=== PATIENT | male | born 1995 | race Caucasian/White ===

== ENCOUNTER 2021-09-16 16:21 | Emergency (ER) | payer SELFPAY ==
[2021-09-16 16:34] VITALS: BP 136/66; PULSE 72; RESP 16; TEMP 37.2; O2SAT 100
--- NOTE | 2021-09-16 17:08 | ED.FEMALEGU ---
HPI - Female Genitourinary General Chief complaint: Urogenital-Male Stated complaint: STD Exposure Time Seen by Provider: 09/16/21 17:00 Source: patient, RN notes reviewed and old records reviewed Mode of arrival: ambulatory Limitations: no limitations History of Present Illness HPI Narrative: 25-year-old male who presents to [facility] with complaints of lower perineal pain no acute abdominal pain for the past 2 week. He has had itching and burning to penis, intermittent pain with symptoms of burning and pain with urination for the past week. Patient reports that his significant other test positive for trichomonas at her routine doctors visit and he wants to be tested for STD's. patient reports that he want only treated for trichomonas today and will return if GC an chlamydia are positive MD elicited complaint: possible STD Onset (ago): week(s) (1) Related Data Allergies Allergy/AdvReac Type Severity Reaction Status Date / Time No Known Allergies Allergy Verified 09/16/21 16:45 Review of Systems Review of Systems: CONSTITUTIONAL: Denies fever, chills, or sweats. EYES: Denies visual changes, redness, or discharge. ENT: Denies rhinorrhea, congestion, sore throat, or otalgia. CARDIOVASCULAR: Denies chest pain, palpitations, or edema. RESPIRATORY: Denies cough or dyspnea. GASTROINTESTINAL: lower perineal pain, no acute abdominal pain, nausea, vomiting, or diarrhea. GENITOURINARY: Positive for dysuria no hematuria some itching and pain with urination, burning to penis SKIN: Denies rash or itching. MUSCULOSKELETAL: Denies back pain, joint pain, or myalgia. NEUROLOGIC: Denies headache, numbness, or weakness. PSYCHIATRIC: Denies anxiety or depression. PMFSH Comments At time of signature, agree with nursing past medical, surgical, social and family history. There is no relevant family history pertinent to the presenting complaint Exam Narrative: GENERAL: Well-appearing, well-nourished, and in no acute distress. HEAD: Normocephalic, atraumatic. EYES: PERRLA and EOMI. ENT: Nares clear, no rhinorrhea or epistaxis. Mucous membranes moist. NECK: Supple.no lymphadenopathy CHEST: Clear to auscultation. No respiratory distress. HEART: Regular rate and rhythm. No murmur heard. Normal peripheral pulses. ABDOMEN: Soft, nontender, nondistended, normal active bowel sounds. perineal discomfort denies any testicle pain, no penile discharge EXTREMITIES: Normal range of motion. No edema. SKIN: Warm, dry, no rash. NEURO: No focal deficits. Alert and oriented x3. Course Course Level of Care: Express Care Visit Vital Signs Vital signs: Vital Signs Temperature 37.2 C 09/16/21 16:34 Pulse Rate 72 09/16/21 16:34 Respiratory Rate 16 09/16/21 16:34 Blood Pressure 136/66 09/16/21 16:34 Pulse Oximetry 100 09/16/21 16:34 Oxygen Delivery Room Air 09/16/21 16:34 Temperature 37.2 C 09/16/21 16:34 Pulse Rate 72 09/16/21 16:34 Respiratory Rate 16 09/16/21 16:34 Blood Pressure 136/66 09/16/21 16:34 Pulse Oximetry 100 09/16/21 16:34 Oxygen Delivery Room Air 09/16/21 16:34 MDM - Female Genitourinary Differential Diagnosis Differential diagnosis: Likely urinary tract infection, trichomoniasis, cystitis and other (GC and Chlamydia, possible exposure to STD's) Medical Records Attestation: I reviewed the patient's medical records. Lab Data Attestation: I reviewed the patient's lab results. Lab results narrative: see urine test:Glucose negative, bilirubin neg, Specific gravity !.020, blood negative,PH 6.0 Urobilinogen 0.2,Nitrate negative, Leukocyte negative. Chlamydia, Gonorrhea, Trichomonas results pending Labs: Lab Results 09/16/21 09/16/21 Range/Units 16:46 16:46 C.trachomatis RNA (TMA) Pending N.gonorrhoeae RNA (TMA) Pending T. vaginalis Amp RNA Pending Urine Glucose Negative Reference Range: Negative Urine Bilir
== END 2021-09-16 17:30 | disposition home or self-care (01) ==
PROVIDERS: Emergency Provider Registered Nurse
DX: R10.2 Pelvic and perineal pain (principal); N48.89 Other specified disorders of penis; R30.0 Dysuria
CPT/HCPCS: 81003; 87491; 87591; 87661; 99213; G0463